=== PATIENT | male | born 2005 | race Caucasian/White ===

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

== ENCOUNTER 2024-12-02 11:47 | Emergency (ER) | payer SELFPAY ==
--- NOTE | ~2024-12-02 | XR_ITS ---
EXAMINATION: XR CHEST CLINICAL INFORMATION: burning in chest. pneumonia? COMPARISON: None available. TECHNIQUE: Frontal view of the chest was obtained. FINDINGS: No significant abnormality is noted involving the heart, lungs, mediastinum, bony thorax or soft tissues. XR/XR chest 1V IMPRESSION: Unremarkable examination. Electronically signed by: Camila Sloan MD 12/02/2024 12:43 PM EDT RP
[2024-12-02 12:00] VITALS: BP 143/73; PULSE 70; RESP 18; TEMP 36.3; O2SAT 98; BMI 21.1
--- NOTE | 2024-12-02 12:04 | ECG_ITS ---
Test Reason : NEAR SYNCOPE Blood Pressure : */* mmHG Vent. Rate : 81 BPM Atrial Rate : 81 BPM P-R Int : 136 ms QRS Dur : 86 ms QT Int : 332 ms P-R-T Axes : 72 55 30 degrees QTcB Int : 385 ms Normal sinus rhythm with sinus arrhythmia Normal ECG No previous ECGs available Referred By: Augusto Guzmán Electronically Signed By: Allen Gatica
--- NOTE | 2024-12-02 12:04 | ED_ITS ---
HPI - Chest Pain General Chief Complaint: Chest Pain Stated Complaint: Faint, Burning In Chest Area Time Seen by Provider: 12/02/24 12:07 Source: patient Mode of arrival: ambulatory Limitations: no limitations History of Present Illness ED Provider: René Amaya HPI narrative: 19 yold male presents to the ED near syncopal episode after blowing nurse. Patient states after blowing nose hard he felt lightheaded like he was about to pass out and also felt acid burning sensatino in chest. patient denies passing out, slurred speech, facial droop, paralysis of extremities, loss of vision, abdomianl pain, nausea, vomitting, or gentinal urinary symptoms. Related Data Previous Rx's ?Medication ?Instructions ?Recorded famotidine 40 mg tablet (Pepcid) 40 mg PO DAILY #10 ta bs 12/02/24 Allergies Allergy/AdvReac Type Severity Reaction Status Date / Time No Known Allergies Allergy Verified 12/02/24 12:01 Review of Systems 2 Review of Systems: chuck syncope, acid burning sensation in chest Yes all other systems are reviewed and are negative [facility] Social History Social History Smoked in Last 30 Days: No Advance Directives: No Advance Directives Information Provided: Yes Physical Exam 2 Vital Signs: Vital Signs: Last Vital Signs Temp 96.9 F 12/02/24 13:51 Pulse 78 12/02/24 13:51 Resp 17 12/02/24 13:51 BP 107/70 12/02/24 13:51 Pulse Ox 99 12/02/24 13:51 O2 Del Method Room Air 12/02/24 13:51 BMI result Body Mass Index 21.1 Const: General: cooperative, healthy appearing, comfortable, no acute distress, well developed, alert, awake and Physically active O rientation/consciousness: patient oriented x3 HEENT: Head: Yes normal to inspection, Yes No palpable skull fracture present, No normocephalic and Yes atraumatic Ears: hearing grossly normal bilaterally, external ears normal, TM's normal bilaterally, TM normal on the right, TM normal on the left, EAC's normal, mastoids normal and no periauricular adenopathy T hroat: Yes posterior oropharynx normal, Yes tonsils normal and Yes uvula midline Eyes: General: appearance normal, both eyes and all related structures Neck: Neck: Yes normal visual inspection, Yes full ROM, Yes no lymphadenopathy, Yes no meningeal signs, Yes trachea midline, Yes supple, No anterior neck swelling and No tender Chest: Chest palpation & inspection: normal inspection of the chest and normal palpation of entire chest wall Resp: Effort & Inspection: normal respiratory effort and able to speak in complete sentences Auscultation: clear to auscultation bilaterally Cardio: Jugular venous distension: no JVD Heart sounds: S1 normal heart sound present and S2 normal heart sound present GI: Inspection: Yes normal to inspection Palpation (GI): Soft to palpation, not firm, nontender, no guarding and not rigid : General: Yes no CVA tenderness Back/Spine/Pelvis: Back: no CVA tenderness and No back tenderness Skin: General skin exam: no rashes or lesions noted, elasticity normal and turgor normal Neuro: General: patient oriented x3, gait normal, tone normal, moves all extremities, Normal light touch and pain sensation, no meningeal signs, no focal motor deficits and CN's II-XI intact bilaterally Extrem: General: Yes normal to inspection, Yes full ROM and Yes capillary refill normal Psych: Appearance: grossly normal, well kempt and not disheveled Course Course Course Narrative: RME: 19-year-old healthy male presents to ED for near syncopal episode and midsternal burning sensation in chest after blowing his nose. Patient states he did not pass out. Patient denies any history acid reflux or any nausea or vomiting. Patient's only complaint is burning midsternal sensation. Patient denies any abdominal pain. Labs EKG x-ray ordered Medications Administered Discontinued Medications Generic Name Dose Route Start Last Admin Trade Name Freq PRN Reason Stop Dose Admin Belladonna Alkaloids/Phenobarbital 10 ml 12/02/24 13:34 12/02/24 13:44 Phenobarb/Hyoscy/Atropine/Scop 10 Ml Elixir PO 12/02/24 13:35 10 ml ONCE ONE Administration Famotidine 20 mg 12/02/24 13:34 12/02/24 13:44 Famotidine 20 Mg Tablet PO 12/02/24 13:35 20 mg ONCE ONE Administration Lidocaine HCl 15 ml 12/02/24 13:34 12/02/24 13:44 Lidocaine Hcl Viscous 2 % 15 Ml Solution MUCOUS MEM 12/02/24 13:35 15 ml ONCE ONE Administration Medical Decision Making Medical Decision Making [facility] Narrative: 19-year-old male presents to ED for near syncopal episode and midsternal burning sensation without any nausea vomiting or diarrhea. Patient states he blew his nose hard and then felt like he was about to pass out then has some acid burning sensation in abdomen. Patient denies any dizziness, slurred speech, facial droop, paralysis of extremities, loss of vision, change in vision, or headache. EKG nondiagnostic. D-dimer negative. Perc score 0. Chest x-ray negative pneumonia. Troponin negative. Heart score is 0. Patient explained worrisome signs and informed to return to the ED immediately. Not suspecting stroke, pericarditis, myocarditis, PE, CHF, ruptured aneurysm, or any other life- threatening etiology. NIH Score zero Differential Diagnosis Differential Diagnoses: The differential diagnosis associated with the presentation includes (Near-syncope, vasovagal, GERD) Admission/Observation Consideration of admission/observation: Escalation of care including admission/observation considered Lab Data [facility] Lab Attestation statement: I reviewed the patient's lab results. 12/02/24 12:18 12/02/24 12:18 Labs: Lab Results 12/02/24 Range/Units 12:18 WBC 9.1 (4.8-10.8) X10*3/uL RBC 4.81 (4.60-5.80) X10*6/uL Hgb 14.5 (14.0-18.0) g/dl Hct 43.0 (42.0-52.0) % MCV 89.4 (80.0-98.0) fL MCH 30.1 (27.0-33.0) pg MCHC 33.7 (31.0-36.0) g/dl RDW 11.9 (11.0-16.0) % Plt Count 297 (160-400) X10*3/uL MPV 10.2 (9.4-12.4) fL Immature Gran % (Auto) 0.4 (0.0-0.4) % Neut % (Auto) 65.1 (45-73) % Lymph % (Auto) 21.7 (20-40) % [place] % (Auto) 9.0 (2-11) % Eos % (Auto) 3.3 (0-4) % Baso % (Auto) 0.5 (0-2) % Lymph # (Auto) 2.0 (1.2-4.9) X10*3/uL [place] # (Auto) 0.8 (0.1-1.2) X10*3/uL Eos # (Auto) 0.3 (0.0-0.4) X10*3/uL Baso # (Auto) 0.1 (0.0-0.2) X10*3/uL Abs Immat Gran (auto) 0.04 H (0.00-0.03) X10*3/uL Absolute Neuts (auto) 5.9 (2.0-8.3) x10*3/uL Absolute Nucleated RBC 0.000 (0.0-0.012) X10*3/uL Nucleated RBC % (auto) 0.0 (0.0-0.2) /100WBC PT 11.9 (10.9-12.4) SEC INR 1.0 (0.9-1.1) APTT 28.0 (26.7-34.1) SEC D-Dimer High Sensitivty < 150 NG/ML Sodium 140 (135-145) mmol/L Potassium 4.1 (3.3-5.1) mmol/L Chloride 106 (96-108) mmol/L Carbon Dioxide 26 (22-29) mmol/L Anion Gap 12 (12-20) BUN 8 L (9-16) mg/dL Creatinine 0.83 (0.5-1.4) mg/dL Estim Creat Clear Calc 121.9 Estimated GFR > 60 Random Glucose 99 (60-115) mg/dL Calcium 9.2 (8.4-10.2) mg/dL Total Bilirubin 0.4 (0.0-1.0) mg/dL AST 22 (5-37) U/L ALT 15 (0-40) U/L Alkaline Phosphatase 72 (39-117) U/L Troponin I High Sens < 2.7 (<3.5-35.0) ng/L Total Protein 8.0 (6.5-8.0) g/dL Albumin 4.4 (3.5-5.0) g/dL Lipase 13 (8-78) U/L Independent Interpretation I performed an independent interpretation of an: EKG (Nondiagnostic) and Plain X-Ray Radiology Impression Discussion of test interpretation with radiology: I have reviewed the radiologist's reading. Independent Historian Clinical information obtained from an independent historian. History obtained from or confirmed by: Other (patinet) Discharge Plan Discharge Clinical Impression: Atypical chest pain, Near syncope, GERD (gastroesophageal reflux disease) Patient Disposition: Home, Self-Care Instructions: Chest Pain (ED), GERD (Gastroesophageal Reflux Disease) (ED), Near Syncope (ED), Chest Wall Pain (ED) Additional Instructions: Your labs EKG came back reassuring. Recommend follow-up with primary care provider. Return to the ED immediately for any chest pain, shortness of breath, coughing up blood, weakness, dizziness, abdominal pain, or any other concerning symptoms. Prescriptions: New famotidine [Pepcid] 40 mg tablet 40 mg PO DAILY Qty: 10 0RF Referrals: [facility] Primary Care, Elena [Provider Group, Internal Medicine] - 2 days Referral Note: near syncope, GERD Clinical Impression: Atypical chest pain; Near syncope; GERD (gastroesophageal reflux disease) Stand Alone Forms: Work/School Release Interventions: ED Discharge Assessment Last Done: 12/02/24 13:51 Discharge Date/Time: 12/02/24 13:52 Print Language: Maltese
[2024-12-02 12:24] LABS: MANUAL DIFF FLAG NO
[2024-12-02 12:35] LABS: Hematocrit 43.0 % (42.0-52.0); Hemoglobin 14.5 g/dl (14.0-18.0); Imm Gran Abs Auto 0.04 X10*3/uL (0.00-0.03); Imm Gran Pct Auto 0.4 % (0.0-0.4); Lymphocytes Absolute Auto 2.0 X10*3/uL (1.2-4.9); Mean Corpuscular HGB Conc 33.7 g/dl (31.0-36.0); Mean Corpuscular Hemoglobin 30.1 pg (27.0-33.0); Mean Corpuscular Volume 89.4 fL (80.0-98.0); NRBC Abs Auto 0.000 X10*3/uL (0.0-0.012); NRBC Pct Auto 0.0 /100WBC (0.0-0.2); Platelet Count 297 X10*3/uL (160-400); Red Blood Count 4.81 X10*6/uL (4.60-5.80); White Blood Count 9.1 X10*3/uL (4.8-10.8)
[2024-12-02 12:37] LABS: INTERNATIONAL NORM RATIO 1.0 (0.9-1.1); Prothrombin Time 11.9 SEC (10.9-12.4)
[2024-12-02 12:39] LABS: Alanine Aminotransferase 15 U/L (0-40); Albumin Level 4.4 g/dL (3.5-5.0); Alkaline Phosphatase 72 U/L (39-117); Anion Gap 12 (12-20); Aspartate Amino Transferase 22 U/L (5-37); Blood Urea Nitrogen 8 mg/dL (9-16); Calcium 9.2 mg/dL (8.4-10.2); Carbon Dioxide 26 mmol/L (22-29); Chloride 106 mmol/L (96-108); Creatinine Clr Calc Pharmacy 121.9; Estimated Glomerular Filt Rate > 60; Lipase 13 U/L (8-78); Partial Thromboplastin Time 28.0 SEC (26.7-34.1); Potassium 4.1 mmol/L (3.3-5.1); Sodium 140 mmol/L (135-145); Total Protein 8.0 g/dL (6.5-8.0)
[2024-12-02 12:42] LABS: D Dimer High Sensitivity < 150 NG/ML
[2024-12-02 12:47] LABS: Troponin-I High Sensitivity < 2.7 ng/L (<3.5-35.0)
[2024-12-02 13:17] VITALS: BP 107/70; PULSE 78; RESP 17; O2SAT 99
--- NOTE | 2024-12-02 13:19 | PC.NURSE ---
Pt c/o midsternal chest pain after blowing nose this am. Pain has resolved. Congestion/sinus pressure since Thursday.
[2024-12-02] MEDS: Lidocaine HCl Viscous 2 % 15 ML SOLUTION MUCOUS MEM (13:44)
[2024-12-02] MEDS: PHENobarb/Hyoscy/Atropine/Scop 10 ML ELIXIR PO (13:44)
[2024-12-02 13:51] VITALS: BP 107/70; PULSE 78; RESP 17; TEMP 36.1; O2SAT 99
--- OUTSIDE RECORDS SUMMARY | 2024-12-02 15:16 | XMS_ITS ---
Author Name [facility] Organization Unknown Care Team Organization Name Specialty Phone Email Start Date End Da te [facility] Oliva Fox Primary Care 02/24/20222023 [facility] Termed, PROVIDER Primary Care 12/24/202109/16
--- OUTSIDE RECORDS SUMMARY | 2024-12-02 15:16 | XMS_ITS | Encounter Summary ---
Author Organization [facility] Address [address] [place] [address] Phone Care Team Providers Care Mica Builder Name Role Phone Provider, Mabel FERNANDEZ Primary Care Provider [phone] Encounter Details Date Type Department Care Team (Late st Contact Info) Description 10/02/2016 Conversion Encounter [facility] - [address] [address] Social History Tobacco Use Types Packs/Day Years Used Date Smoking Tobacco: Never Assessed Sex and Gender Information Value Date Recorded Sex Assigned at Not on file Legal Sex Male 4:40 PM EDT Gender Identity Not on file Sexual Orientation Not on file documented as of this encounter Plan of Treatment Not on file documented as of this encounter Visit Diagnoses Not on filedocumented in this encounter Care Teams Mica Builder Relationship Specialty Start Date End Date Provider, MD Mabel [address] [place] [phone] PCP - General Pediatrics 09/13/22 10/13/22 documented as of this encounter
--- OUTSIDE RECORDS SUMMARY | 2024-12-02 15:16 | XMS_ITS | Clinical Summary ---
Author Organization [facility] Address [address] [place] [address] Care Team Providers Care Food Service Worker Name Role Phone Oliva Fox MD Primary Care Provider [phone] Surgical History Surgery Date Site/Laterality Comments SHOULDER SURGERY Right PROCEDURE: SD UNLISTED PROCEDURE SHOULDER; COMMENT: Shoulder inestability repair. Family History Relation Name Status Comments Brother 1 Alive jose cruz olmos Brother 2 Alive lele pak Mother Alive kimberley muñoz Social History Tobacco Use Types Packs/Day Years Used Date Smoking Tobacco: Never Smokeless Tobacco: Never Alcohol Use Standard Drinks/Week Comments Not Asked 0 (1 standard drink = 0.6 oz pur e alcohol) Sex and Gender Information Value Date Recorded Sex Assigned at Not on file Legal Sex Male 2:59 AM EST Gender Identity Not on file Sexual Orientation Not on file Obstetrics History Plan of Treatment Health Maintenance Due Date Last Done Comments Meningococcal B Vaccine (1 of 2 - Standard) 2019 Depression Screening 02/17/2024 COVID-19 Vaccine ( season) 2024 Influenza Vaccine (#1) 2024 , 12/13/2015, 12/06/2014, Additional history exists DTaP,Tdap,and Td Vaccines (7 - Td or Tdap) 12/06/2024 12/06/2014, 10/05/2007, 07/02/2005, Additional history exists RSV Immunization Adult Patients (1 - 1-dose 75+ series) 06/18/2078 Hepatitis B Vaccines Completed 03/26/2004, 2003, 2003 HIB Vaccines Completed 07/02/2005, 03/2003, 2003, Additional history exists Pneumococcal Vaccine: Pediatrics (0 to 5 Years) and At-Risk Patients (6 to 49 Years) Completed 07/02/2005, 2003, 2003, Additional history exists IPV Vaccines Completed 10/05/2007, 06/16, 03/26/2004, Additional history exists MMR Vaccines Completed 10/05/2007, 06/25/2004 Varicella Vaccines Completed 10/05/2007, 06/25/2004 HPV Vaccines Completed 07/24/2017, 12/13/2015 Meningococcal ACWY Vaccine Completed 07/23/2020, Hepatitis A Vaccines Aged Out No long er eligible based on patient's age to complete this topic RSV Immunization Patients Under 20 months Aged Out No longer eligible based on patient's age to complete this topic Care Teams Food Service Worker Relationship Specialty Start Date End Date Oliva Fox MD PCP - General Pediatrics 06/04/21
--- OUTSIDE RECORDS SUMMARY | 2024-12-02 15:16 | XMS_ITS | Encounter Summary ---
Author Organization [facility] Address [address] [place] [id number] Phone Care Team Providers Care Geophysical Data Technician Name Role Phone Provider, Mabel FERNANDEZ Primary Care Provider [phone] Encounter Details Date Type Department Care Team (Late st Contact Info) Description 06/20/2011 Documentation [facility] Family Medicine [address] [place] [address] Family Medicine, Physician [address] [id number] Social History Tobacco Use Types Packs/Day Years [...] on filedocumented in this encounter Care Teams Geophysical Data Technician Relationship Specialty Start Date End Date Provider, MD Mabel [address] [place] [phone] PCP - General Pediatrics 09/13/22 10/13/22 documented as of this encounter
--- OUTSIDE RECORDS SUMMARY | 2024-12-02 15:16 | XMS_ITS | Clinical Summary ---
Author Organization [facility] Address [address] [place] [phone] Phone Care Team Providers Care Bending Frame Operator Name Role Phone Unavailable Primary Care Provider Unavailabl e Immunizations Immunization Administration Dates Next Due DTaP 5 10/05/2007, 6,2003,2003 ,2003 Hep B, ped/adol 03/26/2004,2003,2003 Hib (HbOC) 2003,2003,2003 Hib (PRP-T) 07/02/2005 IPV 10/05/2007,03/26/2004,2003 ,2003 Influenza, injectable, trivalent 10/17/2008 Influenza, intranasal, trivalent 10/29/2009 MMR 10/05/2007,06/25/2004 Pneumococcal Conjugate 07/02/2005,2003,08/2003,2003 Varicella 10/05/2007,06/25/2004 Family History Relation Name Status Comments Brother Alive Brother: Health y Father Alive Father: Healthy Mother Alive Mother: Healthy Sister Alive Sister: Healthy Social History Tobacco Use Types Packs/Day Years Used Date Smoking Tobacco: Never Assessed Sex and Gender Information Value Date Recorded Sex Assigned at Not on file Legal Sex Male 4:40 PM EDT Gender Identity Not on file Sexual Orientation Not on file Last Filed Vital Signs Vital Sign Reading Time Taken Comments Blood Pressure 90/58 10/29/2009 12:00 AM EDT Pulse 84 10/29/2009 12:00 AM EDT Temperature 36.8 C (98.3 F) 10/29/2009 12:00 AM EDT Respiratory Rate - - Oxygen Saturation - - Inhaled Oxygen Concentration - - Weight 19.1 kg (42 lb) 10/29/2009 12:00 AM EDT Height 111.3 cm (3' 7.8 ) 10/29/2009 12:00 AM ED T Body Mass Index 15.39 10/29/2009 12:00 AM EDT Plan of Treatment Health Maintenance Due Date Last Done Comments Men B Vaccine (1 of 2 - Standard) 2019 Influenza Vaccines (#1) 2024 01/27/20, 12/13/2015, 12/06/2014, Additional history exists COVID-19 Vaccine ( - season) 2024 12/01/2020, 11/08/2020 DTaP,Tdap,and Td Vaccines (7 - Td or Tdap) 12/06/2024 12/06/2014, 10/05/2007, 07/02/2005, Additional history exists Hepatitis B Vaccines Completed 03/26/2004, 2003, 2003 HIB Vaccines Completed 07/02/2005, 06/16, 2003, Additional history exists Pneumococcal Vaccine Completed 07/02/2005, 2003, 2003, Additional history exists IPV Vaccines Completed 10/05/2007, 06/16, 03/26/2004, Additional history exists MMR Vaccines Completed 10/05/2007, 06/25/2004 Varicella Vaccines Completed 10/05/2007, 06/25/2004 HPV Vaccines Completed 07/24/2017, 12/13/2015 Meningococcal Vaccine Completed 07/23/2020, 015 Hepatitis A Vaccines Aged Out No long er eligible based on patient's age to complete this topic
== END 2024-12-02 13:52 | disposition home or self-care (01) ==
PROVIDERS: Physician Assistant; Emergency Provider Emergency Medicine
DX: R07.89 Other chest pain (principal); K21.9 Gastro-esophageal reflux disease without esophagitis; R55 Syncope and collapse; R20.8 Other disturbances of skin sensation; R42 Dizziness and giddiness; Z79.899 Other long term (current) drug therapy
CPT/HCPCS: 36415; 71045; 80053; 83690; 84484; 85025; 85379; 85610; 85730; 93005; 99283; 99285

== ENCOUNTER → 2024-12-02 12:04 | Outpatient (BNV) | payer SELFPAY | PROVIDERS: Emergency Provider Emergency Medicine; Visit Provider Internal Medicine Cardiovascular Disease | DX: R55 Syncope and collapse (principal) | CPT/HCPCS: 93010 ==

== ENCOUNTER → 2024-12-02 12:06 | Outpatient (BNV) | payer OTHER, SELFPAY | PROVIDERS: Emergency Provider Emergency Medicine; Visit Provider Radiology Diagnostic Radiology | DX: R12 Heartburn (principal) | CPT/HCPCS: 71045 ==